=== PATIENT | male | born 2005 | race Caucasian/White ===

== ENCOUNTER 2024-03-18 08:23 | Emergency (ER) | payer BC, OTHER ==
[2024-03-18] MEDS ORDERED: Ketorolac Tromethamine 30 MG (1 mL) VIAL ONE (08:40)
[2024-03-18] MEDS ORDERED: Dexamethasone 10 MG/ML VIAL ONE (08:40)
== END 2024-03-18 09:28 | disposition home or self-care (01) ==
LOC: CSHERS 08:23
DX: J02.0 Streptococcal pharyngitis (principal)
CPT/HCPCS: 87428; 87430; 96372; J1100; J1885